=== PATIENT | male | born 1930 | race Caucasian/White ===

== ENCOUNTER 2020-04-21 09:03 | Inpatient (IN) | payer OTHER ==
[~2020-04-21] VITALS: Ht 172.7 cm; Wt 86.1 kg
--- NOTE | ~2020-04-21 | EMS ---
[address] [address] EMS Patient Care Report Name: AJ ORDOÑEZ Room: [place] [address] [facility]#: [id number] Admission: 04/21/20 Attend Phys: Yady Puentes MD Discharge: Date of : 12/25/[birth year] Report #: [id number] THIS REPORT FOR: //name// Report Transmitted: 04/21/2020 12:36 EMS Care Summary MARINA CASTRO Incident [id number] @ 04/21/2020 08:00 Incident Location [address] [place], [place] [id number] Patient Aj Ordoñez Male, 89 Years 1930 Patient Address [address] [place] [address] [place], [place] [id number] Patient History Chronic Obstructive Pulmonary Disease (COPD),Hypertension (HTN),Endocrine Condition - Other,Hyperlipidemia, Patient Allergies No known allergies, Patient Medications Metoprolol, gabapentin, Eliquis, atorvastatin, NovoLog, Insulin Glargine, Chief Complaint Shortness of Breath Disposition Transported No Lights/[place]lin Dispatch Reason Breathing Problem Transported To [facility] Narrative [facility] dispatched to residence for respiratory. AOS, [facility] on scene with patient care. received report and pre-arrival vitals as charted. [facility] reported that they increased patient oxygen from 2L NC baseline to 4L NC and placed around patient [address] [address] EMS Patient Care Report Name: AJ ORDOÑEZ Room: [place] [address] [facility]#: [id number] Admission: 04/21/20 Attend Phys: Yady Puentes MD Discharge: Date of : 12/25/[birth year] Report #: [id number] mouth due to nosebleed. Upon patient contact, patient was seen sitting upright in bed with nose bleeding; blood was noted on bilateral hands, mouth, face, and shirt with no adventitious breath sounds, no gross bleeding, no obvious life threats. Patient was A&O x4 with a GCS of 15 complaining of nosebleed with SOA. Patient denied pain of any kind including chest pain, dizziness, n/v. TOBAR, change in vision, numbness, tingling, cough, fever. Patient was very hard of hearing. Information was obtained from patient on scene. advised she called EMS for nosebleed that would not stop and for patient complaint of SOA. was unable to state when either started. reported that patient gets frequent nosebleeds from oxygen. Humidifier was seen in bag in room unused. EMS advised to contact supplier and request someone to come out to the house and show them how to use humidifier to reduce nosebleeds from dry oxygen. Patient bilateral LE were noted to have extreme swelling at foot at ankles with swelling tapering off around mid kaba. Edema noted to be 4+ and non-pitting with redness noted from bilateral ankles to mid kaba without weeping, glassiness, warmth, increased pain to palpation. Patient stated this to be normal for him at this time and reported that legs have been this for a few years. Due to confined space in bedroom, the cot could not be brought to patient. A wheelchair was noted in the bedroom. Patient was assisted from sit to stand and assisted to pivot to the wheelchair. With patient in wheelchair, wheelchair was wheeled into the living room where cot was located. Once to the cot, patient was assisted from sit to stand and assisted to pivot to the cot. Once on the cot, seatbelts x4 were applied for patient safety. While patient was being loaded onto the cot, patient medical history and medications were obtained from patient . Cot was escorted to unit where it was loaded and locked. In unit, initial [facility] vitals as charted with 4 lead showing sinus arhythmia with artifact. Patient nose was noted to continue to bleed. Nose clip was applied on bridge of nose to help control bleeding. Patient remained on 4L oxygen via blow by from NC due to nosebleed. Patient continued reported slight SOA but reported improvement with higher oxygen and adjustment of NC. Due to patient being hard of hearing and poor historian, patient requested accompany to the hospital. Family requested initially [facility]. Dispatch advised [facility] to be on high volume. Patient and were advised of status and implication. Family requested transport to [facility]. Due to COVID restrictions, was advised that no visitors were allowed at [facility] but called as courtesy to see what options were. Per hospital, no visitors were allowed in the room or waiting room. Per hospital, would have to "wait outside the hospital on a bench or something". EMS advised that patient was poor historian and was advised by hospital that once all information was obtained that was needed from the , would be asked to leave and wait outside the building. and patient were advised of this. Delay on scene for family to figure out destination. [facility] was called to confirm visitor policy at request of and EMS was advised that one visitor was allowed. Transport decision had been decided. Prior to transport, 4 lead was noted to show an occasional PVC. Due to SOA with change on 4 lead, 12 was obtained. As 12 lead was being applied and obtained, 4 lead was noted to change [facility] [address] [place] [address] EMS Patient Care Report Name: AJ ORDOÑEZ Room: [place] [address] ADM [place] .R.#: [id number] Admission: 04/21/20 Attend Phys: Yady Puentes MD Discharge: Date of : 12/25/[birth year] Report #: [id number] to [facility]. Patient pulses continued to be present and equal with patient having no change in mentation. Patient continued to deny any pain, including chest pain. Repeat vitals obtained due to change in rhythm with decrease in BP noted. Run of Vtach was noted to last approximately 15 seconds and patient was able to self-convert back to sinus and maintained sinus. Repeat 12 obtained showing sinus with PVC. After repeat EKG was obtained, 4 lead was noted to show Vtach again. Patient pulses remained present and equal with patient having no change of mentation and denying chest pain. Due changes in rhythm, fast patches were placed on patient. denied any previous history of cardiac problems other than hypertension but could not state what blood thinner was for. Transport initiated at this time with family rider secured in front seat via seatbelts with understanding that if patient condition deteriorates, transport would be diverted to the nearest facility. En route, patient vitals were monitored as charted. Patient continued to go in and out of VTA with a pulse for varying lengths of time. Patient had no change of mentation and continued to deny any change in symptoms with rhythm changes. Due to rhythm changes, 20 G IV access was established as charted. Patient was noted to have increasingly longer periods of VTACH with decreased length of time between events and shorter periods of sinus rhythm. While in run of VTACH, 150mg Amio was administered via IV push. Upon administration of medication, lock of IV became dislodged with some medication leaking through lock. After administration, catheter was relocked and flushed to ensure patentcy without incident and without infiltration noted. Patient rhythm initially converted to sinus with improvement as shown with rhythm conversion with no run of vtach or PVC for approximately 3 minutes. While in this period of sinus rhythm, nose clip was removed from patient with nose bleed stopped. Patient remained on 4L oxygen NC with NC replaced back in nares. Patient reported improvement in SOA with oxygen therapy and the stopping of nosebleed. After approximately 3 minutes in sinus rhythm without incident, rhythm changed again to Vtach with prolonged intervals of up to 45 beats before converting to sinus. Sinus rhythm was noted to last approximately 3 beats before returning to Vtach. Patient continued to deny any new symptoms, pulses were present and equal with no change in patient mentation. Patient never displayed signs of cyanosis. Due to continued vtach, Amio 150mg drip over 10 minutes was administered at 15 mg/min in D5 solution. With medication administration, rhythm improved and converted to sinus with a single PVC every 4 to 5 beats. No more than a single PVC at a time was noted between beats. Repeat 12 was attempted with change on drip showing artifact. Patient stated that she noticed on their pulse ox this morning that his "heart numbers were jumping all over the place" and stated this had never happened before. At destination, patient remained on 4L oxygen NC, remained on the monitor, and Amio drip continuing. COt was unlocked, unloaded, and escorted to ER with at cot side. In ER, patient was removed from the monitor and placed on hospital supply of oxygen with AMio drip continuing and hung on bedside medication pole. Patient was transferred from EMS cot to hospital bed via draw sheet x4. Verbal report was given. Due to patient being hard of hearing and blood on hands, patient was unable to sign [place] [address] EMS Patient Care Report Name: AJ ORDOÑEZ Room: [address] IN [facility]#: [id number] Admission: 04/21/20 Attend Phys: Yady Puentes MD Discharge: Date of : 12/25/[birth year] Report #: [id number] and treat; receiving facility signed on behalf of patient. Transfer of care complete. [facility] remained out of service due to blood from nosebleed on equipment and cot. Initial Vitals @PTASpO2: 95, @08:20SpO2: 94, @08:35SpO2: 100, @08:47SpO2: 98, @08:57SpO2: 96, @08:34 @08:36 @08:57 @PTAP: 87,BP: 180/120, @08:20P: 88,R: 16,BP: 154/89, @08:35P: 78,R: 16,BP: 127/78, @08:36P: 81,R: 16,BP: 122/70, @08:47P: 84,R: 16,BP: 126/95, @08:57P: 78,R: 16,BP: 111/37, @08:31ThZG9: 29, @08:88QsLS9: 30, @FRUIT OR NUT PICKER @08:20GCS: 15, @08:35GCS: 15, @08:36GCS: 15, @08:47GCS: 15, @08:57GCS: 15, @08:10 @PTAGlucose: 226, Assessments @08:10MENTAL:SKIN:HEENT:LUNG SOUNDS:ABDOMEN:PELVIS//GI:EXTREMITIES:PULSE:NEURO: Impression Cardiac arrhythmia, unspecified Procedures @PTAOther - Medication - 4.000 Liters per Minute (l/min [fluid]) - Nasal CannulaResponse: Improved@08:46Amiodarone - 150.000 Milligrams (mg) - Intravenous (IV)Response: Unchanged@08:55Amiodarone - 15.000 Milligrams per Minute (mg/min) - Intravenous (IV)Response: Improved@08:37 cc () Site: Antecubital-RightResponse: UnchangedSucceeded@08:20Digital respired carbon dioxide monitoring (regime/therapy)Response: UnchangedSucceeded@08:35Digital respired carbon dioxide monitoring (regime/therapy)Response: UnchangedSucceeded@08:3412-Lead ECGResponse: UnchangedSucceeded@08:3612-[place] [address] EMS Patient Care Report Name: SMITAAJ Room: [address] IN [facility]#: [id number] Admission: 04/21/20 Attend Phys: Yady Puentes MD Discharge: Date of : 12/25/[birth year] Report #: [id number] ECGResponse: UnchangedSucceeded@08:5712-Lead ECGResponse: UnchangedSucceeded Timeline FRUIT OR NUT PICKER,Other - Medication - 4.000 Liters per Minute (l/min [fluid]) - Nasal Cannula,Response: Improved FRUIT OR NUT PICKER,BP: / M,PULSE: ,RR: R,SPO2: 95 Ox,ETCO2: ,BG: ,PAIN: ,GCS: , FRUIT OR NUT PICKER,BP: 180/120 M,PULSE: 87,RR: R,SPO2: Ox,ETCO2: ,BG: ,PAIN: ,GCS: , FRUIT OR NUT PICKER,BP: / M,PULSE: ,RR: R,SPO2: Ox,ETCO2: ,BG: ,PAIN: ,GCS: , FRUIT OR NUT PICKER,BP: / M,PULSE: ,RR: R,SPO2: Ox,ETCO2: ,B,PAIN: ,GCS: , 07:59,Call Received 07:59,Dispatch Notified 07:59,Psap Call 08:00,Dispatched 08:01,En Route 08:08,On Scene 08:10,At Patient 08:10,BP: / M,PULSE: ,RR: R,SPO2: Ox,ETCO2: ,BG: ,PAIN: ,GCS: , 08:20,Digital respired carbon dioxide monitoring (regime/therapy),Response: UnchangedSucceeded, 08:20,BP: / M,PULSE: ,RR: R,SPO2: 94 Ox,ETCO2: ,BG: ,PAIN: ,GCS: , 08:20,BP: 154/89 M,PULSE: 88,RR: 16 R,SPO2: Ox,ETCO2: ,BG: ,PAIN: ,GCS: , 08:20,BP: / M,PULSE: ,RR: R,SPO2: Ox,ETCO2: 29 ,BG: ,PAIN: ,GCS: , 08:20,BP: / M,PULSE: ,RR: R,SPO2: Ox,ETCO2: ,BG: ,PAIN: ,GCS: 15, 08:34,12-Lead ECG,Response: UnchangedSucceeded, 08:34,BP: / M,PULSE: ,RR: R,SPO2: Ox,ETCO2: ,BG: ,PAIN: ,GCS: , 08:35,Digital respired carbon dioxide monitoring (regime/therapy),Response: UnchangedSucceeded, 08:35,BP: / M,PULSE: ,RR: R,SPO2: 100 Ox,ETCO2: ,BG: ,PAIN: ,GCS: , 08:35,BP: 127/78 M,PULSE: 78,RR: 16 R,SPO2: Ox,ETCO2: ,BG: ,PAIN: ,GCS: , 08:35,BP: / M,PULSE: ,RR: R,SPO2: Ox,ETCO2: 30 ,BG: ,PAIN: ,GCS: , 08:35,BP: / M,PULSE: ,RR: R,SPO2: Ox,ETCO2: ,BG: ,PAIN: ,GCS: 15, 08:36,12-Lead ECG,Response: UnchangedSucceeded, 08:36,BP: / M,PULSE: ,RR: R,SPO2: Ox,ETCO2: ,BG: ,PAIN: ,GCS: , 08:36,BP: 122/70 M,PULSE: 81,RR: 16 R,SPO2: Ox,ETCO2: ,BG: ,PAIN: ,GCS: , 08:36,BP: / M,PULSE: ,RR: R,SPO2: Ox,ETCO2: ,BG: ,PAIN: ,GCS: 15, 08:37, cc Site: Antecubital-Right,Response: UnchangedSucceeded, 08:37,Depart Scene 08:46,Amiodarone - 150.000 Milligrams (mg) - Intravenous (IV),Response: Unchanged 08:47,BP: / M,PULSE: ,RR: R,SPO2: 98 Ox,ETCO2: ,BG: ,PAIN: ,GCS: , 08:47,BP: 126/95 M,PULSE: 84,RR: 16 R,SPO2: Ox,ETCO2: ,BG: ,PAIN: ,GCS: , 08:47,BP: / M,PULSE: ,RR: R,SPO2: Ox,ETCO2: ,BG: ,PAIN: ,GCS: 15, 08:55,Amiodarone - 15.000 Milligrams per Minute (mg/min) - Intravenous (IV),Response: Improved 08:57,12-Lead ECG,Response: UnchangedSucceeded, 08:57,BP: / M,PULSE: ,RR: R,SPO2: 96 Ox,ETCO2: ,BG: ,PAIN: ,GCS: , [place] [address] EMS Patient Care Report Name: AJ ORDOÑEZ Room: [address] IN [facility]#: [id number] Admission: 04/21/20 Attend Phys: Yady Puentes MD Discharge: Date of : [birth year]/25/[birth year] Report #: [id number] 08:57,BP: / M,PULSE: ,RR: R,SPO2: Ox,ETCO2: ,BG: ,PAIN: ,GCS: , 08:57,BP: 111/37 M,PULSE: 78,RR: 16 R,SPO2: Ox,ETCO2: ,BG: ,PAIN: ,GCS: , 08:57,BP: / M,PULSE: ,RR: R,SPO2: Ox,ETCO2: ,BG: ,PAIN: ,GCS: 15, 09:00,At Destination 09:00,Call Closed Disclaimer v1.1 Copyright 2020 [email or web address] This EMS Care Summary contains data elements from the applicable legal record (which may be displayed differently). It is designed to provide pertinent information for the following purposes: continuity of care, clinical quality, and state data reporting. The complete legal record is available to ED staff and administrators of the receiving hospital in [employer] Patient Tracker. All data is provided "as is."
[2020-04-21 09:05] VITALS: BP 91/61
[2020-04-21] MEDS ORDERED: NOVOLOG100 UNIT/1 SUBQ (09:14)
[2020-04-21] MEDS ORDERED: LANTUS SUBQ (09:14)
[2020-04-21] MEDS ORDERED: ELIQUIS5 MG PO (09:15)
[2020-04-21] MEDS ORDERED: KLOR-CON 10 ER10 MEQ PO (09:15)
[2020-04-21] MEDS ORDERED: LIPITOR40 MG PO (09:15)
[2020-04-21] MEDS ORDERED: NEURONTIN100 MG PO (09:15)
[2020-04-21] MEDS ORDERED: TOPROL XL25 MG PO (09:15)
[2020-04-21 09:29] LABS: HEMATOCRIT 37.7 % (42.0-52.0); HEMOGLOBIN 13.1 gm/dL (14.0-18.0); MCH 34.3 pg (26.0-34.0); MCHC 34.7 g/dL (28.0-37.0); MPV 6.7 fl. (7.2-11.1); NUCLEATED RBCS 0 /100WBC; PLATELET COUNT* 244 thou/uL (150-400); RBC 3.81 mil/uL (4.50-6.00); RDW-CV 14.5 % (10.5-14.5); WBC 10.3 thou/uL (4.0-11.0)
[2020-04-21 09:42] LABS: APTT 30.2 Seconds (25.0-31.3); INR 1.3; PROTIME 13.3 Seconds (9.20-11.50)
[2020-04-21 09:54] LABS: CALCIUM 8.1 mg/dL (8.5-10.1); CREATININE 1.3 mg/dL (0.6-1.3); POTASSIUM 4.4 mmol/L (3.5-5.1)
[2020-04-21 10:04] LABS: ALBUMIN 1.6 g/dL (3.4-5.0); MAGNESIUM 1.9 mg/dL (1.8-2.4); TOTAL PROTEIN 8.4 g/dL (6.4-8.2)
[2020-04-21 10:09] LABS: ABSOLUTE EOSINOPHILS 0.2 thou/uL (0.0-0.7); ABSOLUTE LYMPHOCYTES 0.5 thou/uL (0.8-5.3); ABSOLUTE MONOCYTES 0.4 thou/uL (0.0-1.2); ABSOLUTE NEUTROPHILS 9.2 thou/uL (1.6-8.1); PLATELET ESTIMATE ADEQUATE
[2020-04-21 14:22] VITALS: BP 122/81
--- NOTE | 2020-04-21 15:41 | EKG ---
[place] [address] ELECTROCARDIOGRAM REPORT Name: AJ ORDOÑEZ Room: [place] [address] ADM IN [facility]#: [id number] Admission: 04/21/20 Attend Phys: Yady Puentes, Discharge: Date of : [birth year] Date of Service: 04/21/20 0909 Report #: [id number] THIS REPORT FOR: //name// [facility] ED Test Date: 2020-04-21 Test Time: 09:09:30 Pat Name: AJ ORDOÑEZ Department: Room: [facility] Gender: M Auto Service Writer: Mark Anthony RAMIREZ : 1930 Requested By: Tavon Martinez Order Number: [id number] MD: Louie Pastor Measurements Intervals [place] Rate: 81 P: MA: QRS: 55 QRSD: 114 T: QT: 466 QTc: 541 Interpretive Statements Atrial fibrillation Ventricular premature complex Borderline intraventricular conduction delay L left Louie Pastor ow voltage, extremity leads Borderline repolarization abnormality Prolonged QT interval No previous ECG available for comparison Electronically Signed On 04-21-2020 15:41:16 CDT by Louie Pastor [email or web address] <ELECTRONICALLY SIGNED> By: Louie Pastor MD, FACC 04/21/20 1541 0909 0909 Louie Pastor MD, [facility] /EPI
--- NOTE | 2020-04-21 17:04 | 2DMMODE ---
[place] [address] 2 D/M-MODE ECHOCARDIOGRAM Name: AJ ORDOÑEZ Room: [place] [address] ADM IN [facility]#: [id number] Admission: 04/21/20 Attend Phys: Yady Puentes, Discharge: Date of : [birth year] Date of Service: 04/21/20 1704 Report #: [id number] THIS REPORT FOR: cc: Byron Riggins MD, Thomas MD Liston, Michael J. MD [facility] ~ APPROVED REPORT Study performed: 04/21/2020 14:28:29 EXAM: Comprehensive 2D, Doppler, and color-flow Echocardiogram Patient Location: In-Patient Room #: ER Status: routine BSA: 2.11 HR: 74 bpm BP: 118/58 mmHg Rhythm: NSR Other Information Study Quality: Good Indications Chest Pain 2D Dimensions IVSd: 15.15 (7-11mm) LVOT Diam: 23.31 (18-24mm) LVDd: 35.26 mm PWd: 12.89 (7-11mm) Ascending Ao: 31.45 (22-36mm) LVDs: 24.34 (25-40mm) Aortic Root: 33.24 mm Volumes Left Atrial Volume (Systole) LA ESV Index: 35.80 mL/m2 Aortic Valve AoV Peak Fernando.: 2.82 m/s AO Peak Gr.: 31.75 mmHg LVOT Max P.66 mmHg AO Mean Gr.: 18.72 mmHg LVOT Mean P.76 mmHg LVOT Max V: 0.96 m/s AO V2 VTI: 60.28 cm LVOT Mean V: 0.61 m/s NILDA (VTI): 1.38 cm2 LVOT V1 VTI: 19.49 [place] [address] 2 D/M-MODE ECHOCARDIOGRAM Name: AJ ORDOÑEZ Room: [address] IN .R.#: [id number] Admission: 04/21/20 Attend Phys: Yady Puentes, Discharge: Date of : [birth year] Date of Service: 04/21/20 1704 Report #: [id number] Mitral Valve E/A Ratio: 2.23 MV Decel. Time: 193.33 ms MV E Max Fernando.: 1.65 m/s MV PHT: 56.07 ms MVA (PHT): 3.92 cm2 TDI E/Lateral E': 18.33 E/Medial E': 16.50 Medial E' Fernando.: 0.10 m/s Lateral E' Fernando.: 0.09 m/s Tricuspid Valve RAP Estimate: 5.00 mmHg TR Peak Gr.: 30.79 mmHg RVSP: 35.00 mmHg PA Pressure: 35.00 mmHg Left Ventricle The left ventricle is normal size. There is normal LV segmental wall motion. Mild concentric left ventricular hypertrophy. Left ventricular systolic function is normal. LVEF is 55-60%. This study is not technically sufficient to allow evaluation of the LV diastolic function due to atrial fibrillation. Right Ventricle Right ventricle is mildly dilated. The right ventricular systolic function is normal. Atria Left atrium is moderately dilated. Right atrium is mildly dilated. Aortic Valve Moderate aortic valve sclerosis. No aortic regurgitation is present. Moderate aortic stenosis. Mitral Valve There is mitral annular calcification. Mild mitral regurgitation. No evidence of mitral valve stenosis. Tricuspid Valve The tricuspid valve is normal in structure. Mild tricuspid regurgitation. Mild pulmonary hypertension. Pulmonic Valve The pulmonary valve is normal in structure. [place] [address] 2 D/M-MODE ECHOCARDIOGRAM Name: AJ ORDOÑEZ Room: [address] IN [facility]#: [id number] Admission: 04/21/20 Attend Phys: Yady Puentes, Discharge: Date of : [birth year] Date of Service: 04/21/20 1704 Report #: [id number] valvular regurgitation. Great Vessels The aortic root is normal in size. IVC is normal in size and collapses >50% with inspiration. Pericardium There is no pericardial effusion. Left pleural effusion. <Conclusion> The left ventricle is normal size. Mild concentric left ventricular hypertrophy. Left ventricular systolic function is normal. LVEF is 55-60%. Right ventricle is mildly dilated. Left atrium is moderately dilated. Right atrium is mildly dilated. Moderate aortic valve sclerosis. Moderate aortic stenosis. There is mitral annular calcification. Mild mitral regurgitation. Mild tricuspid regurgitation. Mild pulmonary hypertension. IVC is normal in size and collapses >50% with inspiration. Left pleural effusion. <ELECTRONICALLY SIGNED> By: Louie Pastor MD, FACC 04/21/201703 03 03 Louie Pastor MD, FACC /INF
[2020-04-21 19:41] VITALS: BP 117/68
[2020-04-21 20:00] VITALS: BP 148/80
[2020-04-21] MEDS ORDERED: FUROSEMIDE 20 M20 MG PO (22:45)
[2020-04-22] VITALS: BP 109/61
[2020-04-22 04:00] VITALS: BP 118/55
[2020-04-22 08:00] VITALS: BP 120/57
[2020-04-22 08:06] LABS: HEMOGLOBIN 11.6 gm/dL (14.0-18.0); MCH 33.5 pg (26.0-34.0); MCHC 34.2 g/dL (28.0-37.0); MCV 98.2 fL (80.0-100.0); MPV 7.2 fl. (7.2-11.1); RBC 3.46 mil/uL (4.50-6.00); RDW-CV 14.2 % (10.5-14.5); WBC 15.3 thou/uL (4.0-11.0)
[2020-04-22 08:49] LABS: ANION GAP 6 mmol/L (7-16); BUN 17 mg/dL (7-18); CALCIUM 8.3 mg/dL (8.5-10.1); CHLORIDE 102 mmol/L (98-107); CO2 29 mmol/L (21-32); CREATININE 1.3 mg/dL (0.6-1.3); GLUCOSE 271 mg/dL (70-99); SODIUM 137 mmol/L (136-145); TROPONIN-I LEVEL <0.06 ng/mL (<0.06)
[2020-04-22 08:50] LABS: POTASSIUM 3.4 mmol/L (3.5-5.1)
[2020-04-22 10:00] LABS: CHOLESTEROL 60 mg/dL (<200); HDL CHOLESTEROL 26 mg/dL (>40); LDL CHOLESTEROL 27 mg/dL (<100); TC:HDL 2.3 Ratio (Not establshd); TRIGLYCERIDE 37 mg/dL (<150); VLDL 7 mg/dL (<40)
[2020-04-22 10:01] LABS: SERUM ASSESSMENT Clear
--- NOTE | 2020-04-22 14:27 | CON ---
[address] [address] CONSULTATION Name: AJ ORDOÑEZ Room: [place] [address] ADM [place] .R.#: [id number] Admission: 04/21/20 Attend Phys: Yady Puentes MD Discharge: Date of : [birth year] Report #: [id number] THIS REPORT FOR: //name// cc: Byron Riggins MD, Thomas MD ~ THIS REPORT FOR: //name// CC: Yady Riggins MD DATE OF SERVICE: 04/21/2020 INDICATION: Atrial arrhythmias and ventricular tachycardia. HISTORY OF PRESENT ILLNESS: The patient is an 89-year-old gentleman with apparent chronic atrial fibrillation. He is chronically anticoagulated. He presented to the Emergency Room after summoning EMS for a nosebleed. En route, the patient had a wide complex tachycardia that was regular, possibly consistent with ventricular tachycardia. The patient was asymptomatic with this. He denies any chest pain. He does have COPD that has been relatively stable. The reports that occasionally, he has what sounds like aspiration. The patient does report having some difficulty swallowing, and getting choked up with food at time. There is no history of coronary artery disease. Cardiac risk factors include hypertension, type 2 diabetes mellitus and hyperlipidemia. PAST MEDICAL HISTORY: 1. COPD. 2. Hypertension. 3. Diabetes. 4. Some form of congestive heart failure. 5. Chronic lower extremity edema that appears to be lymphedema. The patient did get a dose of amiodarone and was placed on a drip en route. The amiodarone drip was discontinued in the Emergency Room. ALLERGIES: None documented. HOME MEDICATIONS: Eliquis 5 mg p.o. b.i.d.; potassium chloride 10 mEq daily; atorvastatin 40 mg daily; gabapentin 200 mg t.i.d.; Toprol-XL 25 mg daily; Lantus insulin at bedtime, dose unknown; NovoLog insulin 5 units q.a.c. FAMILY HISTORY: Noncontributory. SOCIAL HISTORY: The patient is a lifelong nonsmoker[place] [address] CONSULTATION Name: SMITAAJ Room: [address] IN [facility]#: [id number] Admission: 04/21/20 Attend Phys: Yady Puentes MD Discharge: Date of : 12/25/[birth year] Report #: [id number]. REVIEW OF SYSTEMS: A 14-point review of systems as per HPI, otherwise unremarkable. PHYSICAL EXAMINATION: VITAL SIGNS: Blood pressure 117/67, pulse is in the 80s and irregular. GENERAL: This is a thin elderly male, in no distress. Mood and affect appropriate. HEENT: Extraocular muscles intact. There is dried blood around the nares. Mucous membranes appear moist. NECK: Shows no jugular venous distention. CHEST: Reveals diminished breath sounds. I do not appreciate wheezes or rales. CARDIOVASCULAR: Reveals an irregularly irregular rhythm with rate control. I do not appreciate significant gallop or murmur. ABDOMEN: Reveals a soft abdomen with positive bowel sounds. No tenderness. EXTREMITIES: Show gross 3-4+ edema to the lower thighs bilaterally. SKIN: Dry. RADIOLOGICAL DATA: Chest x-ray shows left pleural effusion and left basilar atelectasis. LABORATORY DATA: Reviewed. Sodium 135, potassium 4.4, chloride 101, bicarbonate 27, BUN 11, creatinine 1.3, serum glucose 210, AST 33. Lipase 93, total bilirubin 1.0, calcium 8.1, magnesium 1.9, alkaline phosphatase 138, ALT 17, total protein 8.4, albumin 1.6. EGFR 52. Lactic acid 2.1. Total CPK 42. Troponin less than 0.06. NT-proBNP 4907. Protime 13.3, INR 1.3, APTT 30.2, white blood cell count 10.3, hemoglobin 13.1, platelet count 244,000. IMPRESSION AND RECOMMENDATIONS: 1. Chronic atrial fibrillation. Rate appears adequately controlled. The patient has significant nose bleeding with anticoagulant. Would hold anticoagulant for a day or two and will need to resume anticoagulant once nasal bleeding is controlled. 2. Ventricular tachycardia by telemetry strips from EMS while en route. The patient has had no recurrent arrhythmias at this time. I will obtain echocardiogram and stress testing for further evaluation. Holding amiodarone at this point in time. Further medication adjustments pending results of his cardiac studies. 3. Hypertension appears adequately controlled at this time. 4. Dyslipidemia. We will check fasting lipid profile. 5. Diabetes per primary physician. 6. Chronic obstructive pulmonary disease, [place] [address] CONSULTATION Name: SMITAAJ Room: [address] IN [facility]#: [id number] Admission: 04/21/20 Attend Phys: Yady Puentes MD Discharge: Date of : 12[birth year]25[birth year] Report #: [id number] 7. Hypercoagulable state secondary to atrial fibrillation. Holding anticoagulation in the setting of recent acute nasal bleed. <ELECTRONICALLY SIGNED> By: Louie Pastor MD, FACC 04/22/20 1427 1512 [id number] Pastor MD, FACC /nt
[2020-04-22 16:10] VITALS: BP 117/54
--- NOTE | 2020-04-22 16:54 | CARDNUC ---
[place] [address] CARDIAC NUCLEAR IMAGING REPORT Name: AJ ORDOÑEZ Room: [address] IN [facility]#: [id number] Admission: 04/21/20 Attend Phys: Yady Puentes, Discharge: Date of : [birth year] Date of Service: 04/22/20 1654 Report #: [id number] THIS REPORT FOR: cc: Byron Riggins MD, Thomas MD Liston, Michael J. MD [facility] ~ APPROVED REPORT Imaging Protocol: Stress Tc-99m/Rest Tc-99m 1 day Study performed: 04/21/2020 15:05:00 Indication: Abnormal EKG Patient Location: In-Patient Room #: 227 Stress Tech: Brea Carpenter Stress Nurse: Renee Veloz RN Ht: 5 ft 8 in Wt: 215 lbs BSA: 2.11 m2 BMI: 32.68 Medical History Medical History: COPD, CHF, HTN Medications: eliquis, k-cl, atorvastatin, toprol-xl Allergies: No known drug allergies Cardiac Risk Factors: Age, HTN, DM Exercise History: Sedentary Resting Data Rest SPECT myocardial perfusion imaging was performed in supine position 30 minutes following the intravenous injection of 10.0 mCi of Tc-99m Sestamibi. Time of rest injection: 09:30 Administration Route: IV Administration Site: Right AC Pharmacologic Stress Pharmacologic stress test was performed by injecting Regadenoson 0.4 mg IV push over 10-15 seconds immediately followed by the intravenous injection of 29.1 mCi of Tc-99m Sestamibi. Time of stress injection: 12:00 Administration Route: IV Administration Site: Right AC Heart Rate at time of stress injection: 91 bpm. Gated Stress SPECT was performed 40 [place] [address] CARDIAC NUCLEAR IMAGING REPORT Name: AJ ORDOÑEZ Room: [address] IN [facility].#: [id number] Admission: 04/21/20 Attend Phys: Yady Puentes, Discharge: Date of : [birth year] Date of Service: 04/22/20 1654 Report #: [id number] injection. The images were gated to evaluate regional wall motion and calculate left ventricular ejection fraction. Stress Test Details Stress Test: Pharmacologic stress testing performed using 0.4 mg of regadenoson per 5 mL given IV over 10 seconds. Reason for pharmacologic stress test: a fib. 60 mg caffeine given for other. HR Max Heart Rate (APMHR): 131 bpm Resting HR: 71 bpm Target HR (85% APMHR): 111 bpm Max HR Achieved: 91 bpm % of APMHR: 69 Recovery HR: 78 bpm BP Resting BP: 107/54 mmHg Max BP: 90/45 mmHg Recovery BP: 106/50 mmHg ECG Resting ECG: Atrial Fibrillation Stress ECG: Atrial Fibrillation ST Change: None Recovery ECG: Atrial Fibrillation Recovery ST Change: None Clinical Reason for Termination: Completed protocol The patient had mild chest discomfort with Lexiscan infusion that resolved spontaneously. This was likely due to medication effect in light of nuclear imaging findings. Nurse Comments pt has hx of aspiraton so was given ivp caffeine Stress ECG Conclusion Baseline twelve-lead EKG shows atrial fibrillation without significant ST segment abnormality. EKGs obtained during and post Lexiscan infusion show atrial fibrillation with no significant ST segment changes when compared to baseline. Study Quality Study: Good Artifact: Mild Diaphragmatic [place] [address] CARDIAC NUCLEAR IMAGING REPORT Name: [id number] Room: [address] [place] [facility]#: [id number] Admission: 04/21/20 Attend Phys: Yady Puentes, Discharge: Date of : [birth year] Date of Service: 04/22/20 1654 Report #: [id number] At rest, the left ventricular ejection fraction was 59%.. Post stress, the left ventricular ejection was 61%.. TID = 1.03. Perfusion Perfusion images show mild photopenia of the inferior wall. Gated images show normal wall motion in this region suggesting diaphragmatic attenuation artifact. No other significant fixed or reversible defects are identified. Wall Motion Normal left ventricular wall motion. Nuclear Conclusion ECG Findings: negative for ischemia Clinical Findings: equivocal Nuclear Findings: negative for ischemia Exercise Capacity: not assessed Left Ventricular Function: normal Risk Study: low Perfusion study show no defect to suggest ischemia. Left ventricular systolic function appears normal on gated studies. This is a low risk study. <Conclusion> Baseline twelve-lead EKG shows atrial fibrillation without significant ST segment abnormality. EKGs obtained during and post Lexiscan infusion show atrial fibrillation with no significant ST segment changes when compared to baseline. <ELECTRONICALLY SIGNED> By: Louie Pastor MD, [facility] 04/22/20 1654 [id number] [phone] Louie Pastor MD, FACC /INF
[2020-04-22 20:00] VITALS: BP 98/44
[2020-04-23] VITALS: BP 87/45
[2020-04-23 04:00] VITALS: BP 144/60
[2020-04-23 05:16] LABS: HEMATOCRIT 33.2 % (42.0-52.0); HEMOGLOBIN 11.5 gm/dL (14.0-18.0); MCH 33.7 pg (26.0-34.0); MCHC 34.5 g/dL (28.0-37.0); MCV 97.8 fL (80.0-100.0); MPV 7.1 fl. (7.2-11.1); RBC 3.4 mil/uL (4.50-6.00); RDW-CV 13.8 % (10.5-14.5); WBC 15.1 thou/uL (4.0-11.0)
[2020-04-23 05:45] LABS: ALBUMIN 1.5 g/dL (3.4-5.0); CALCIUM 8.6 mg/dL (8.5-10.1); CREATININE 1.3 mg/dL (0.6-1.3); POTASSIUM 3.6 mmol/L (3.5-5.1); TOTAL BILIRUBIN 0.5 mg/dL (<0.1-1.0); TOTAL PROTEIN 7.5 g/dL (6.4-8.2)
[2020-04-23 08:15] VITALS: BP 95/67
[2020-04-23 12:31] VITALS: BP 114/51
[2020-04-23 15:58] VITALS: BP 115/57
[2020-04-23 20:00] VITALS: BP 109/58
[2020-04-24 00:20] VITALS: BP 116/60
[2020-04-24 04:36] VITALS: BP 120/51
[2020-04-24 05:23] LABS: CALCIUM 8.5 mg/dL (8.5-10.1); CREATININE 1.4 mg/dL (0.6-1.3); HEMATOCRIT 34.7 % (42.0-52.0); HEMOGLOBIN 11.9 gm/dL (14.0-18.0); MAGNESIUM 1.9 mg/dL (1.8-2.4); MCH 33.5 pg (26.0-34.0); MCHC 34.3 g/dL (28.0-37.0); MCV 97.8 fL (80.0-100.0); MPV 7.3 fl. (7.2-11.1); RBC 3.55 mil/uL (4.50-6.00); RDW-CV 13.7 % (10.5-14.5); WBC 14.2 thou/uL (4.0-11.0)
[2020-04-24 06:11] LABS: POTASSIUM 2.9 mmol/L (3.5-5.1)
[2020-04-24 08:30] VITALS: BP 115/65
[2020-04-24 12:37] VITALS: BP 98/56
[2020-04-24 15:52] VITALS: BP 107/44
[2020-04-24 20:00] VITALS: BP 106/47
[2020-04-25] VITALS: BP 124/55
[2020-04-25 04:00] VITALS: BP 104/59
[2020-04-25 08:00] VITALS: BP 110/51
[2020-04-25 12:00] VITALS: BP 94/50
[2020-04-25 14:50] LABS: HEMATOCRIT 37.1 % (42.0-52.0); HEMOGLOBIN 12.7 gm/dL (14.0-18.0); MCH 33.9 pg (26.0-34.0); MCHC 34.2 g/dL (28.0-37.0); MCV 99.1 fL (80.0-100.0); MPV 7.5 fl. (7.2-11.1); NUCLEATED RBCS 0 /100WBC; PLATELET COUNT* 230 thou/uL (150-400); RBC 3.74 mil/uL (4.50-6.00); RDW-CV 14.2 % (10.5-14.5); WBC 15.4 thou/uL (4.0-11.0)
[2020-04-25 14:59] LABS: CALCIUM 8.4 mg/dL (8.5-10.1); CREATININE 1.5 mg/dL (0.6-1.3); POTASSIUM 4.6 mmol/L (3.5-5.1)
[2020-04-25 15:13] LABS: ABSOLUTE LYMPHOCYTES 0.8 thou/uL (0.8-5.3); ABSOLUTE MONOCYTES 0.9 thou/uL (0.0-1.2); ABSOLUTE NEUTROPHILS 13.7 thou/uL (1.6-8.1); PLATELET ESTIMATE ADEQUATE
[2020-04-25 16:01] VITALS: BP 107/59
[2020-04-25 20:00] VITALS: BP 105/64
[2020-04-26] VITALS: BP 110/57
[2020-04-26 04:00] VITALS: BP 112/69
[2020-04-26 05:18] LABS: HEMATOCRIT 35.2 % (42.0-52.0); HEMOGLOBIN 12.2 gm/dL (14.0-18.0); MCH 33.6 pg (26.0-34.0); MCHC 34.7 g/dL (28.0-37.0); MCV 96.8 fL (80.0-100.0); MPV 7.5 fl. (7.2-11.1); RBC 3.64 mil/uL (4.50-6.00); RDW-CV 13.8 % (10.5-14.5); WBC 15.3 thou/uL (4.0-11.0)
[2020-04-26 05:32] LABS: ALBUMIN 1.5 g/dL (3.4-5.0); ALKALINE PHOSPHATASE 138 U/L (46-116); ANION GAP < 0 mmol/L (7-16); BUN 26 mg/dL (7-18); CALCIUM 8.6 mg/dL (8.5-10.1); CHLORIDE 101 mmol/L (98-107); CO2 38 mmol/L (21-32); CREATININE 1.4 mg/dL (0.6-1.3); GLUCOSE 60 mg/dL (70-99); MAGNESIUM 2.1 mg/dL (1.8-2.4); POTASSIUM 4.7 mmol/L (3.5-5.1); SGOT 96 U/L (15-37); SGPT 56 U/L (30-65); SODIUM 137 mmol/L (136-145); TOTAL BILIRUBIN 0.5 mg/dL (<0.1-1.0); TOTAL PROTEIN 7.3 g/dL (6.4-8.2)
[2020-04-26 08:00] VITALS: BP 105/62
[2020-04-26] MEDS ORDERED: AZITHROMYCIN500 MG PO (10:24)
[2020-04-26] MEDS ORDERED: PREDNISONE 10 M10 MG PO (10:24)
[2020-04-26] MEDS ORDERED: CEFDINIR300 MG PO (10:24)
[2020-04-26 11:43] VITALS: BP 108/57
[2020-04-26 16:40] VITALS: BP 97/42
[2020-04-26 20:00] VITALS: BP 102/50
[2020-04-27] VITALS: BP 100/52
[2020-04-27 04:30] VITALS: BP 111/53
[2020-04-27 05:25] LABS: ABSOLUTE EOSINOPHILS 0.1 thou/uL (0.0-0.7); ABSOLUTE LYMPHOCYTES 1.2 thou/uL (0.8-5.3); ABSOLUTE MONOCYTES 0.9 thou/uL (0.0-1.2); ABSOLUTE NEUTROPHILS 8.5 thou/uL (1.6-8.1); BASOPHILS 0.1 %; EOSINOPHILS 1.1 %; HEMATOCRIT 34.6 % (42.0-52.0); LYMPHOCYTES 11.1 %; MCH 33.6 pg (26.0-34.0); MCHC 34.6 g/dL (28.0-37.0); MCV 97.3 fL (80.0-100.0); MONOCYTES 8.4 %; MPV 7.7 fl. (7.2-11.1); NUCLEATED RBCS 0 /100WBC; PLATELET COUNT* 215 thou/uL (150-400); POLYS 79.3 %; RBC 3.55 mil/uL (4.50-6.00); WBC 10.7 thou/uL (4.0-11.0)
[2020-04-27 05:41] LABS: ANION GAP < 0 mmol/L (7-16); BUN 24 mg/dL (7-18); CALCIUM 8.3 mg/dL (8.5-10.1); CHLORIDE 99 mmol/L (98-107); CO2 38 mmol/L (21-32); CREATININE 1.1 mg/dL (0.6-1.3); GLUCOSE 112 mg/dL (70-99); MAGNESIUM 2.1 mg/dL (1.8-2.4); POTASSIUM 4.4 mmol/L (3.5-5.1); SODIUM 135 mmol/L (136-145)
[2020-04-27 08:00] VITALS: BP 106/45
[2020-04-27 13:05] VITALS: BP 102/49
== END 2020-04-27 14:00 | DRG 871 ==
LOC: M.ERS 09:03 → M.TBA-ER 10:22 → M.2W 10:22 → M.TBA-ER 19:42 → M.2W 20:00
PROVIDERS: Family Medicine; Internal Medicine; Internal Medicine Cardiovascular Disease; Internal Medicine Critical Care Medicine; ADMIT Internal Medicine; ATTEND Internal Medicine
PROC: 0W9B3ZZ Drainage of Left Pleural Cavity, Percutaneous Approach (ICD-10-PCS; principal; 2020-04-21)
DX: A41.9 Sepsis, unspecified organism (principal); J96.01 Acute respiratory failure with hypoxia; J15.6 Pneumonia due to other Gram-negative bacteria; E43 Unspecified severe protein-calorie malnutrition; I50.33 Acute on chronic diastolic (congestive) heart failure; J44.1 Chronic obstructive pulmonary disease with (acute) exacerbation; J90 Pleural effusion, not elsewhere classified; I48.20 Chronic atrial fibrillation, unspecified; D68.69 Other thrombophilia; L03.116 Cellulitis of left lower limb; L03.115 Cellulitis of right lower limb; I47.2 Ventricular tachycardia; J93.9 Pneumothorax, unspecified; J44.0 Chronic obstructive pulmonary disease with (acute) lower respiratory infection; I11.0 Hypertensive heart disease with heart failure; E11.9 Type 2 diabetes mellitus without complications; R04.0 Epistaxis; E78.5 Hyperlipidemia, unspecified; Z20.828 Contact with and (suspected) exposure to other viral communicable diseases; Z68.28 Body mass index [BMI] 28.0-28.9, adult; Z79.4 Long term (current) use of insulin; Z99.81 Dependence on supplemental oxygen; Z79.899 Other long term (current) drug therapy